=== PATIENT | female | born 1990 | race African-American/Black ===

== ENCOUNTER 2018-09-09 18:27 | Emergency (ER) | payer OTHER ==
[~2018-09-09] VITALS: Ht 170.2 cm; Wt 113.0 kg
[2018-09-09 18:32] VITALS: Ht 170.2 cm; Wt 113.0 kg
--- NOTE | 2018-09-09 21:48 | ERD ---
ER Documentation Chief Complaint Chief Complaint "I FEEL PREG & LEAKING BREASTS", REPORTS TUBES BEING TIED, LMP "MONTHS" HPI 28-year-old G5, P4 female presents with complaints of breast discharge x2 months and requesting test. Patient states she has noticed bilateral white discharge leaking from bilateral breasts x2 months and believe she may be however states to have had a tubal ligation multiple years ago with a last menstrual period in February 2018, with last heterosexual sexual encounter also in February 2018. States to have taken multiple tests at home in the past month all of which have resulted in a negative result. She does state discharge has significantly decreased since starting her new medication, Lexapro and Topamax. History of bipolar and depression. Denies abdominal pain, vaginal discharge, pelvic pain, back pain, fevers, chills. Denies IVDA. ROS All systems reviewed and are negative except as per history of present illness. CONSTITUTIONAL: Denies fever, Denies chills, Denies general weakness. SKIN: Denies itching, Denies rash, Denies redness. RESPIRATORY: Denies SOB, Denies cough. CARDIOVASCULAR: Denies chest pain, Denies palpitations GI: Denies nausea, Denies vomiting, Denies diarrhea, Denies abd pain. : Denies dysuria, Denies urgency, Denies hematuria NEURO: Denies focal weakness, Denies slurred speech, Denies gait problems PSYCHIATRIC: Denies change mental status, Denies confusion Allergies Allergies: Coded Allergies: No Known Allergy (Unverified , 09/09/18) PMhx/Soc History of Surgery: Yes (tubal ligation) Anesthesia Reaction: No Hx Neurological Disorder: No Hx Respiratory Disorders: No Hx Cardiac Disorders: No Hx Psychiatric Problems: No Hx Miscellaneous Medical Probl: No Hx Alcohol Use: No Hx Substance Use: No Hx Tobacco Use: No Smoking Status: Never smoker FmHx Family History: No diabetes, No coronary disease, No other Physical Exam Vitals Vital Signs Date Temp Pulse Resp B/P (MAP) Pulse Ox O2 O2 Flow FiO2 Time Delivery Rate 09/09/18 97.8 66 18 155/66 98 18:32 (95) Physical Exam Const: No acute distress Head: Atraumatic Eyes: Normal Conjunctiva ENT: Normal External Ears, Nose and Mouth. Neck: Full range of motion. No meningismus. Breast: Breast are symmetric upon visual inspection. No skin changes, nipple discharge, retraction, lesions, masses or tenderness appreciated on exam. No lympadenopathy in axillary region bilaterally Resp: Clear to auscultation bilaterally Cardio: Regular rate and rhythm, no murmurs Abd: Soft, non tender, non distended. Normal bowel sounds Skin: No petechiae or rashes Neur: Awake and alert Psych: Normal Mood and Affect Results 24 hrs Laboratory Tests Test 09/09/18 21:09 POC Beta HCG, Qualitative NEGATIVE Procedures/MDM MDM: This is a 28yo F requesting test d/t bilateral nipple discharge x 2 months. On physical exam, no visible nipple discharge and unable to express discharge with breast exam. Patient was offered betaHCG as well as prolactin testing, however, declined stating wishing to only have urine performed. Urine HCG negative. Advised patient that although breast exam unremarkable and I was personally unable to express discharge from the nipples it is recommended that she follow-up with her primary care provider or [facility] within the next 1 to 2 days as I can not fully r/o an underlying endocrine or metabolic abnormality without labs. Pt expressed understanding and was given referral to both PCP and COMM[facility] SERVICE [facility]ICER clinics in the area. ED return precautions discussed. All questions addressed and answered. Departure Diagnosis: Primary Impression: Breast discharge Additional Impression: examination or test, negative result Condition: Good Patient Instructions: Breast Health: Normal Breast Changes Referrals: [facility] [place] [id number] [id number] OFFICE FAX HILDA PRYORNICA [address] [place], [place] [phone] [address] [place] [address] [place], [place] [phone] ANNI PANG [address] [facility], [facility] [address] [place] [address] JENNIFER SALDAÑA [address] [place], [place] [phone] [facility] [address] [place] [phone] [address] [facility] [phone] - RENNY CAMPOVERDE [address] [facility] [phone] [place] [address] [facility]. [address], [facility] [phone], [facility] [address] [place] [address] JESSE MCNEILL PA-C Sep 09, 2018 21:48
== END 2018-09-09 21:25 | disposition home or self-care (01) ==
LOC: FTE 18:27
DX: N64.52 Nipple discharge (principal)
CPT/HCPCS: 81025; Z7502; 99283